=== PATIENT | male | born 1970 | race Hispanic/Latino ===

== ENCOUNTER 2018-12-02 21:29 | Emergency (ER) | payer SELFPAY ==
[2018-12-02 22:16] LABS: EOSINOPHILS % (AUTO) 2.2 % (0.0-8.0); HEMATOCRIT 44.2 % (42-54); LYMPHOCYTES % (AUTO) 41.3 % (21.0-51.0); MEAN CORPUSCULAR HEMOGLOBIN 33.6 pg (27.0-33.0); MEAN CORPUSCULAR HGB CONC 37.1 g/dL (32.0-36.0); MEAN CORPUSCULAR VOLUME 90.7 fL (79-99); NEUTROPHILS % (AUTO) 49.5 % (40.0-77.0); NUCLEATED RED BLOOD CELLS 0.2 % (0.0-0.19); PLATELET COUNT (AUTO) 174 K/uL (130-400); RED BLOOD CELL COUNT(AUTO) 4.87 MIL/uL (4.50-6.20); RED CELL DISTRIBUTION WIDTH 13.2 % (11.0-15.5); WHITE BLOOD COUNT (AUTO) 7.1 K/uL (4.8-10.8)
[2018-12-02] MEDS ORDERED: ONDANSETRON HCL 4 MG/2 ML VIAL ONE (22:18)
[2018-12-02 22:26] LABS: CREATININE 0.8 mg/dL (0.5-1.5); POTASSIUM 4.1 mmol/L (3.5-5.1)
[2018-12-02 22:30] LABS: ALBUMIN 3.8 g/dL (3.5-5.0); BILIRUBIN,TOTAL 0.6 mg/dL (0.2-1.0)
[2018-12-02] MEDS ORDERED: SODIUM CHLORIDE 0.9% 1000ML 2,000 ML IV ONE (22:42)
[2018-12-02] MEDS ORDERED: MECLIZINE HCL 25 MG TABLET ONE (22:42)
[2018-12-02 23:05] LABS: ABG BASE EXCESS -0.3 mmol/L (-2.0-3.0); ABG HCO3 25.4 mmol/L (21.0-28.0); ABG OXYGEN SATURATION 94.9 % (95.0-99.0); ABG PCO2 45 mmHg (35-48)
== END 2018-12-03 02:25 | disposition home or self-care (01) ==
LOC: EDH 21:29
DX: E86.0 Dehydration (principal); H81.10 Benign paroxysmal vertigo, unspecified ear; I48.91 Unspecified atrial fibrillation; Z87.891 Personal history of nicotine dependence
CPT/HCPCS: 36415; 36600; 70450; 71046; 80053; 82010; 82550; 82803; 83605; 84484; 85025; 93005; 96361; 96374; 99285; J2405; J7030

== ENCOUNTER 2021-09-04 22:50 | Emergency (ER) | payer OTHER ==
[~2021-09-04] VITALS: Ht 182.9 cm; Wt 125.2 kg
[2021-09-04 22:51] VITALS: BP 137/89
[2021-09-05 00:02] LABS: BASOPHILS % (AUTO) 0.4 % (0.0-5.0); EOSINOPHILS % (AUTO) 2.4 % (0.0-8.0); LYMPHOCYTES % (AUTO) 43.3 % (21.0-51.0); MEAN CORPUSCULAR HEMOGLOBIN 30.8 pg (27.0-33.0); MEAN CORPUSCULAR HGB CONC 36.1 g/dL (32.0-36.0); MEAN CORPUSCULAR VOLUME 85.3 fL (79-99); MONOCYTES % (AUTO) 6.5 % (3.0-13.0); NEUTROPHILS % (AUTO) 47.2 % (40.0-77.0); PLATELET COUNT (AUTO) 189 K/uL (130-400); RED BLOOD CELL COUNT(AUTO) 5.16 MIL/uL (4.50-6.20); RED CELL DISTRIBUTION WIDTH 12.1 % (11.0-15.5); WHITE BLOOD COUNT (AUTO) 9.5 K/uL (4.8-10.8)
[2021-09-05 00:20] LABS: CREATININE 0.9 mg/dL (0.5-1.5); POTASSIUM 4.2 mmol/L (3.5-5.1)
[2021-09-05] MEDS ORDERED: PRED20TA3 PO (00:46)
[2021-09-05] MEDS ORDERED: PREDNISONE 20 MG TABLET ONE (00:48)
[2021-09-05] MEDS ORDERED: PREDNISONE 20 MG TABLET PO ONE (01:00)
== END 2021-09-05 00:53 | disposition home or self-care (01) ==
LOC: EDH 22:50
DX: G51.0 Bell's palsy (principal); E11.9 Type 2 diabetes mellitus without complications; E78.00 Pure hypercholesterolemia, unspecified
CPT/HCPCS: 36415; 70450; 80048; 85025

== ENCOUNTER 2022-10-18 20:22 | Emergency (ER) | payer OTHER ==
[~2022-10-18] VITALS: Ht 182.9 cm; Wt 123.8 kg
[~2022-10-18 20:22] MED LIST: PRED20TA3 PO
[2022-10-18] MEDS ORDERED: IBUPROFEN 800 MG TAB PO ONE (22:00)
[2022-10-18] MEDS ORDERED: GABAPENTIN 300 MG CAPSULE PO SCH (22:00)
[2022-10-18] MEDS ORDERED: CYCLOBENZAPRINE HCL 10 MG TABLET PO ONE (22:00)
[2022-10-18] MEDS ORDERED: IBUP-1493 PO (22:12)
[2022-10-18] MEDS ORDERED: GABA300C PO (22:12)
[2022-10-18] MEDS ORDERED: CYCL-309 PO (22:12)
[2022-10-18 22:50] VITALS: BP 132/78
[2022-10-21] MEDS ORDERED: LOSA25TA41 PO (20:03)
[2022-10-21] MEDS ORDERED: METF-444 PO (20:04)
[2022-10-21] MEDS ORDERED: ATOR20TA65 PO (20:06)
[2022-10-21] MEDS ORDERED: TERB250T89 PO (20:07)
[2022-10-21] MEDS ORDERED: VITA1CAP50 PO (20:08)
[2022-10-21] MEDS ORDERED: CYAN250010 PO (20:09)
[2022-10-21] MEDS ORDERED: CHOL400T4 PO (20:11)
== END 2022-10-18 23:06 | disposition home or self-care (01) ==
LOC: EDH 20:22
DX: S13.4XXA Sprain of ligaments of cervical spine, initial encounter (principal); E11.9 Type 2 diabetes mellitus without complications; E78.00 Pure hypercholesterolemia, unspecified; I10 Essential (primary) hypertension; Z79.1 Long term (current) use of non-steroidal anti-inflammatories (NSAID); Z79.52 Long term (current) use of systemic steroids; Z79.899 Other long term (current) drug therapy; V89.2XXA Person injured in unspecified motor-vehicle accident, traffic, initial encounter; Y93.89 Activity, other specified; Y92.89 Other specified places as the place of occurrence of the external cause; Y99.8 Other external cause status
CPT/HCPCS: 72125

== ENCOUNTER → 2022-11-30 | Outpatient (CLI) | payer OTHER ==
[~2022-11-30] MED LIST changes: +ATOR20TA65 PO; +CHOL400T4 PO; +CYAN250010 PO; +METF-444 PO; -PRED20TA3 PO; +VITA1CAP50 PO
== END | disposition home or self-care (01) ==
LOC: RAH 07:23
PROVIDERS: ATTEND Internal Medicine Gastroenterology
DX: R19.2 Visible peristalsis (principal); R93.2 Abnormal findings on diagnostic imaging of liver and biliary tract
CPT/HCPCS: 78227; A9537